=== PATIENT | female | born 2000 | race American Indian/Alaskan Native ===

== ENCOUNTER 2020-10-08 14:07 | Emergency (ER) | payer OTHER ==
[2020-10-08 14:30] VITALS: BP 121/77
[2020-10-08] MEDS ORDERED: IBUPROFEN 800 MG TAB PO ONE (15:21)
--- NOTE | 2020-10-08 15:21 | Emergency Department Report ---
ED General Adult HPI - General Chief complaint: Urogenital-Female Stated complaint: CHEST PAIN/LFT BREAST PAIN Time Seen by Provider: 10/08/20 15:03 Source: patient Mode of arrival: Ambulatory Limitations: No Limitations - History of Present Illness Initial comments: 19-year-old female with no significant past medical history presents to the ER today complaining of knots to both breasts and chest pain. Patient states that she has had knots to her breast for about a year but she has noticed that they have been getting bigger. She reports associated soreness to the breast she states that she did see a [facility] when she was in [place] which is where she lives and they told her it was related to fibrocystic breast disease after doing breast ultrasound. She states that she has not followed up with [facility] due to lack of insurance. She states that she has been having intermittent chest pain to the left and right chest for about 1 to 2 months. She states [place] in nature and seems to be worse with certain positions. She states that she did go to the ER for her chest pain when her symptoms first started and she was told that she has pneumonia. She states that she no longer have URI symptoms, cough, shortness of breath or wheezing but she still continues to have the pain. She states that she is not sure if the chest pain is related to the cyst in her breast. She denies any calf pain or swelling. She denies any nipple discharge redness or bruising to the breast. She denies any fever or chills. Last menstrual cycle was the middle of August. She states she is not concerned for . MD Complaint: Chest pain/Breast pain -: month(s) - Related Data Previous Rx's Medication Instructions Recorded Last Taken Type Ibuprofen [Motrin] 800 mg PO Q8HR PRN #30 tablet 10/08/20 Unknown Rx Allergies Allergy/AdvReac Type Severity Reaction Status Date / Time No Known Allergies Allergy Unverified 10/08/20 14:23 ED Review of Systems ROS: Stated complaint: CHEST PAIN/LFT BREAST PAIN Other details as noted in HPI Comment: All other systems reviewed and negative Constitutional: denies: chills, fever Eyes: denies: eye pain, eye discharge, vision change ENT: denies: ear pain, throat pain Respiratory: other (Bilateral breasts pain and not). denies: cough, shortness of breath, SOB with exertion, SOB at rest, wheezing Cardiovascular: chest pain Gastrointestinal: denies: abdominal pain, nausea, vomiting, diarrhea, constipation, hematemesis, melena, hematochezia Genitourinary: denies: urgency, dysuria, frequency, hematuria, discharge Musculoskeletal: denies: back pain, joint swelling, arthralgia Skin: denies: rash, lesions Neurological: denies: headache, weakness, paresthesias Psychiatric: denies: anxiety, depression Hematological/Lymphatic: denies: easy bleeding, easy bruising ED Past Medical Hx - Past Medical History Previous Medical History?: No - Surgical History Past Surgical History?: No - Medications Home Medications: Home Medications Medication Instructions Recorded Confirmed Last Taken Type Ibuprofen [Motrin] 800 mg PO Q8HR PRN #30 tablet 10/08/20 Unknown Rx ED Physical Exam - General Limitations: No Limitations General appearance: alert - Head Head exam: Present: atraumatic, normocephalic, normal inspection - Eye Eye exam: Present: normal appearance, PERRL, EOMI Pupils: Present: normal accommodation - ENT ENT exam: Present: normal exam, mucous membranes moist - Respiratory Respiratory exam: Present: normal lung sounds bilaterally, chest wall tenderness (Right upper chest wall just above the breast tissue). Absent: respiratory distress - Cardiovascular Cardiovascular Exam: Present: regular rate, normal rhythm, normal heart sounds - Neurological Exam Neurological exam: Present: alert, oriented X3, CN II-XII intact, normal gait - Psychiatric Psychiatric exam: Present: normal affect, normal mood - Skin Skin exam: Present: intact - Other Other exam information: Bilateral breast exam: There are some mild soreness to palpation to the inferior aspect of the left lower breast. No apparent tenderness to palpation to the right breast. Nodular area palpated same about 1 oclock of both breast but left a little larger than right. No large mass noted. No dimpling noted. No erythema, bruising or rash noted. No nipple discharge. ED Course Vital Signs 10/08/20 14:25 Temperature 99.1 F Pulse Rate 86 Respiratory 18 Rate Blood Pressure 121/77 O2 Sat by Pulse 99 Oximetry ED Medical Decision Making - Radiology Data Radiology results: report reviewed Findings [facility] [address] [place] [address] XRay Report Signed Patient: ANA GREGORY MR#: [id number] : 2000 Acct:[id number] Age/Sex: 19 / F ADM Date: 10/08/20 Loc: ED Attending Dr: Ordering Physician: OBDULIA WRIGHT Date of Service: 10/08/20 Procedure(s): XR chest routine 2V Accession Number(s): [id number] cc: OBDULIA WRIGHT Fluoro Time In Minutes: CHEST 2 VIEWS INDICATION / CLINICAL INFORMATION: chest pain. COMPARISON: None available. FINDINGS: SUPPORT DEVICES: None. HEART / MEDIASTINUM: No significant abnormality. LUNGS / PLEURA: Clear lungs. No significant pleural effusion. No pneumothorax. ADDITIONAL FINDINGS: No significant additional findings. IMPRESSION: 1. No significant abnormality of the chest. Signer Name: Vargas Estrella MD Signed: 10/08/2020 3:50 PM Workstation Name: [id number] Transcribed By: RANI Dictated By: Vargas Estrella MD Electronically Authenticated By: Vargas Estrella MD Signed Date/Time: 10/08/20 1550 DD/ 1549 TD/TT: - Medical Decision Making 19 yr old female presents c/o bilateral breast "knots" x 1 yr but was concerned they were getting bigger and she has also been having intermittent chest pain x 1-2 mths, which seems to be positional but patient was not sure if the chest pain was related to breast cyst. Pt is well appearing, not toxic, well hydrated, and not in any respiratory distress. She is not in any pain distress. Her VS stable. Her breast exam unremarkable. She has reproducible chest ttp. Chest xray nl. Her history, physical and diagnostic testing does not suggest pneumonia, pneumothorax, ACS, PE, cellulitis, abscess, or any significant emergent issue at this time requiring emergent additional w/u, admission, or emergent consult at this time. Discussed suspected dx and tx plan with patient. Patient expressed understanding of instructions and agreed with plan. Pt was stable at time of d/c Critical care attestation.: If time is entered above; I have spent that time in minutes in the direct care of this critically ill patient, excluding procedure time. ED Disposition Clinical Impression: Bilateral breast cysts, Chest wall pain Disposition: DC- TO HOME OR SELFCARE Is pt being admited?: No Does the pt Need Aspirin: No Condition: Stable Instructions: Breast Cyst, Chest Wall Pain, [id number], Chest Pain (ED) Additional Instructions: It is important that you follow up with your [facility]FORMATION ARCHITECT on return to [place] for breast ultrasound and/or mammogram.. Take the Motrin as prescribed for pain. Return to the ER if your symptoms changes or worsens in any way. Prescriptions: Ibuprofen [Motrin] 800 mg PO Q8HR PRN #30 tablet PRN Reason: Pain , Severe (7-10) Referrals: PRIMARY CARE,MD [Primary Care Provider] - 3-5 Days Forms: Work/School Release Form(ED) Time of Disposition: 16:00
--- NOTE | 2020-10-08 15:54 | XRay Report ---
CHEST 2 VIEWS INDICATION / CLINICAL INFORMATION: chest pain. COMPARISON: None available. FINDINGS: SUPPORT DEVICES: None. HEART / MEDIASTINUM: No significant abnormality. LUNGS / PLEURA: Clear lungs. No significant pleural effusion. No pneumothorax. ADDITIONAL FINDINGS: No significant additional findings. IMPRESSION: 1. No significant abnormality of the chest. Signer Name: Vargas Estrella MD Signed: 10/08/2020 3:50 PM Workstation Name: [id number]
== END 2020-10-08 17:59 | disposition home or self-care (01) ==
LOC: ED 14:07
DX: N60.02 Solitary cyst of left breast (principal); N60.01 Solitary cyst of right breast; R07.89 Other chest pain; Z79.1 Long term (current) use of non-steroidal anti-inflammatories (NSAID)
CPT/HCPCS: 71046; 99283